=== PATIENT | female | born 1995 ===

== ENCOUNTER 2018-04-20 19:02 | Emergency (ER) | payer BC ==
[2018-04-20 21:08] LABS: BASO # 0.1 K/uL (0.0-0.2); BASO % 1.3 % (0.0-2.0); EOS # 0.1 K/uL (0.0-0.7); EOS % 1.3 % (0.0-4.0); HEMOGLOBIN 12.5 g/dL (12.0-16.0); LYMPH # 2.8 K/uL (1.0-4.3); LYMPH % 35.7 % (20.0-40.0); MEAN CELL VOLUME 87.1 fl (81.0-99.0); MEAN CORPUSCULAR HEMOGLOBIN 28.8 pg (27.0-31.0); MEAN CORPUSCULAR HGB CONC 33.1 g/dL (33.0-37.0); MEAN PLATELET VOLUME 8.7 fl (7.2-11.7); MONO # 0.5 K/uL (0.0-0.8); MONO % 6.9 % (0.0-10.0); NEUT # 4.3 K/uL (1.8-7.0); NEUT % 54.8 % (50.0-75.0); NRBC % 0.1 % (0.0-0.0); RBC 4.34 Mil/uL (3.80-5.20); RED CELL DISTRIBUTION WIDTH 13.9 % (11.5-14.5); WHITE BLOOD COUNT 7.9 K/uL (4.8-10.8)
[2018-04-20 21:22] LABS: SQUAMOUS EPITHIAL 1 /hpf (0-5); URINE BACTERIA RARE (<OCC); URINE BILIRUBIN NEGATIVE (NEGATIVE); URINE BLOOD NEGATIVE (NEGATIVE); URINE CLARITY CLEAR (Clear); URINE COLOR STRAW (YELLOW); URINE GLUCOSE (UA) NEG (NEGATIVE); URINE LEUKOCYTE ESTERASE MOD Leu/uL (Negative); URINE PROTEIN NEGATIVE (NEGATIVE); URINE UROBILINOGEN 0.2-1.0 mg/dL (0.2-1.0)
--- NOTE | 2018-04-20 21:36 | ED PDOC ---
HPI: Chest Pain Time Seen by Provider: 04/20/18 20:02 Chief Complaint (Nursing): Chest Pain Chief Complaint (Provider): Chest Pain History Per: Patient History/Exam Limitations: no limitations Onset/Duration Of Symptoms: Intermittent Episodes (x2 weeks) Current Symptoms Are (Timing): Still Present Additional Complaint(s): 22 year old female presents to ED with complaints of chest pain and palpitations associated with left arm pain intermittently for 2 weeks. Patient states symptoms are similar to episodes in the past with (-) cardiac work up months ago. Otherwise, she denies syncope, dizziness, vomiting, diarrhea, abdominal pain, or leg swelling. PCP: cannot recall. Past Medical History Reviewed: Historical Data, Nursing Documentation, Vital Signs Vital Signs: Last Vital Signs Temp 98.2 F 04/20/18 19:10 Pulse 86 04/20/18 19:10 Resp 16 04/20/18 19:10 BP 133/67 04/20/18 19:10 Pulse Ox 100 04/20/18 19:10 - Medical History PMH: No Chronic Diseases Denies: Asthma, Bronchitis, CAD, CVA, Diabetes, Deep Vein Thrombosis - Surgical History Surgical History: No Surg Hx - Family History Family History: States: No Known Family Hx Denies: ID, CAD, Diabetes - Immunization History Hx Tetanus Toxoid Vaccination: No Hx Influenza Vaccination: No Hx Pneumococcal Vaccination: No - Home Medications Home Medications: Ambulatory Orders Medication Instructions Recorded Naproxen 500 mg PO BID #30 tab 04/20/18 Nitrofurantoin Macrocrystals 100 mg PO BID #14 cap 04/20/18 [Macrobid] - Allergies Allergies/Adverse Reactions: Allergies Allergy/AdvReac Type Severity Reaction Status Date / Time No Known Allergies Allergy Verified 04/20/18 19:09 ANGELES Risk Score for UA/NSTEMI - ANGELES Risk Score Age > 64: NO 3 or more CAD Risk Factors: NO Known CAD (Stenosis greater than 50%): NO Aspirin use in past 7 days: NO Severe Angina: NO EKG ST changes greater than 0.5mm: NO Positive Cardiac Marker: NO ANGELES Score: 0 Risk %: 5% Wells Criteria for PE - Wells Criteria for Pulmonary Embolism Clinical Signs and Symptoms of DVT: No P.E is #1 Diagnosis, or Equally Likely: No Heart Rate >100: No Immobilization at least 3 days;Surgery previous 4 weeks: No Previous, objectively diagnosed PE or DVT: No Hemoptysis: No Malignancy w/treatment within 6 months, or palliative: No Total Score: 0 Review of Systems ROS Statement: Except As Marked, All Systems Reviewed And Found Negative Cardiovascular: Positive for: Chest Pain, Palpitations Gastrointestinal: Negative for: Vomiting, Abdominal Pain, Diarrhea Musculoskeletal: Positive for: Arm Pain (left-sided). Negative for: Other (leg edema) Neurological: Negative for: Dizziness, Other (syncope) Physical Exam - Reviewed Nursing Documentation Reviewed: Yes Vital Signs Reviewed: Yes - Physical Exam Appears: Positive for: Well, Non-toxic, No Acute Distress Head Exam: Positive for: ATRAUMATIC, NORMAL INSPECTION, NORMOCEPHALIC Skin: Positive for: Normal Color Eye Exam: Positive for: Normal appearance, EOMI, PERRL ENT: Positive for: Normal ENT Inspection Neck: Positive for: Normal, Supple Cardiovascular/Chest: Positive for: Regular Rate, Rhythm, Chest Non Tender Respiratory: Positive for: Normal Breath Sounds. Negative for: Wheezing, Respiratory Distress Gastrointestinal/Abdominal: Positive for: Normal Exam, Soft. Negative for: Tenderness Back: Positive for: Normal Inspection Extremity: Positive for: Normal ROM (upper/lower). Negative for: Pedal Edema, Calf Tenderness Neurologic/Psych: Positive for: Alert, Oriented. Negative for: Motor/Sensory Deficits - Laboratory Results Result Diagrams: 04/20/18 20:59 04/20/18 20:59 Lab Results: Urine Color Straw (YELLOW) 04/20/18 20:59 Urine Clarity Clear (Clear) 04/20/18 20:59 Urine pH 7.0 (5.0-8.0) 04/20/18 20:59 Ur Specific [place] 1.009 (1.003-1.030) 04/20/18 20:59 Urine Protein Negative mg/dL (NEGATIVE) 04/20/18 20:59 Urine Glucose (UA) Neg mg/dL (NEGATIVE) 04/20/18 20:59 Urine Ketones Negative mg/dL (NEGATIVE) 04/20/18 20:59 Urine Blood Negative (NEGATIVE) 04/20/18 20:59 Urine Nitrate Negative (NEGATIVE) 04/20/18 20:59 Urine Bilirubin Negative (NEGATIVE) 04/20/18 20:59 Urine Urobilinogen 0.2-1.0 mg/dL (0.2-1.0) 04/20/18 20:59 Ur Leukocyte Esterase Mod Tera/uL (Negative) 04/20/18 20:59 Urine RBC (Auto) 1 /hpf (0-3) 04/20/18 20:59 Urine Microscopic WBC 7 /hpf (0-5) H 04/20/18 20:59 Ur Squamous Epith Cells 1 /hpf (0-5) 04/20/18 20:59 Urine Bacteria Rare (<OCC) 04/20/18 20:59 - ECG ECG: Positive for: Interpreted By Me ECG Rhythm: Positive for: Normal QRS. Negative for: ST/T Changes Interpretation Of Abn EKG: sinus arrhythmia O2 Sat by Pulse Oximetry: 100 Medical Decision Making Medical Decision Making: Initial Impression: chest pain, palpitation, left arm pain Differential diagnosis: cardiac arrhythmia, ACS, PE Initial Plan: * EKG * Labs * CXR * Urine C&S Scribe Attestation: Documented by Brenda Perry, acting as a scribe for Boni Salinas MD. Provider Scribe Attestation: All medical record entries made by the Scribe were at my direction and personally dictated by me. I have reviewed the chart and agree that the record accurately reflects my personal performance of the history, physical exam, medical decision making, and the department course for this patient. I have also personally directed, reviewed, and agree with the discharge instructions and disposition. Disposition - Clinical Impression Clinical Impression: Chest pain, UTI (urinary tract infection) - Patient ED Disposition Is Patient to be Admitted: No Doctor Will See Patient In The: Office Counseled Patient/Family Regarding: Studies Performed, Diagnosis, Need For Followup - Disposition Referrals: [facility] [Outside] Disposition: Routine/Home Disposition Time: 22:45 Condition: GOOD Additional Instructions: MAIKOL STEVENS, thank you for letting us take care of you today. Your provider was Boni Salinas MD and you were treated for CHEST PAIN. The emergency medical care you received today was directed at your acute symptoms. If you were prescribed any medication, please fill it and take as directed. It may take several days for your symptoms to resolve. Return to the Emergency Department if your symptoms worsen, do not improve, or if you have any other problems. Please contact your doctor or call one of the physicians/clinics you have been referred to that are listed on the Patient Visit Information form that is included in your discharge packet. Bring any paperwork you were given at discharge with you along with any medications you are taking to your follow up visit. Our treatment cannot replace ongoing medical care by a primary care provider outside of the emergency department. Thank you for allowing the [facility] team to be part of your care today. If you had an X-Ray or CT scan: A Radiologist will review the ED reading if any change in treatment is needed we will contact you. If you had a blood, urine, or wound culture: It will take several days for the results, if any change in treatment is needed we will contact you. If you had an STI test: It will take 48 hours for the results. Please call after 1 week if you have not heard back. Prescriptions: Naproxen 500 mg PO BID #30 tab Nitrofurantoin Macrocrystals [Macrobid] 100 mg PO BID #14 cap Instructions: Chest Pain (DC), Urinary Tract Infections in Adults
[2018-04-20 21:57] LABS: BLOOD UREA NITROGEN 14 mg/dl (7-17); CALCIUM 9.2 mg/dL (8.4-10.2); GFR NON-AFRICAN AMERICAN > 60
[2018-04-20 23:03] VITALS: BP 101/58; PULSE 65; RESP 18; TEMP 98.7; O2SAT 99
--- NOTE | 2018-04-21 09:14 | RAD ---
Date of service: 04/20/2018 HISTORY: chest pain COMPARISON: No prior. FINDINGS: LUNGS: No active pulmonary disease. PLEURA: No significant pleural effusion identified, no pneumothorax apparent. CARDIOVASCULAR: No aortic atherosclerotic calcification present. Normal cardiac size. No pulmonary vascular congestion. OSSEOUS STRUCTURES: No significant abnormalities. VISUALIZED UPPER ABDOMEN: Normal. OTHER FINDINGS: None. IMPRESSION: No active disease.
--- NOTE | 2018-04-21 15:28 | CARD ---
APPROVED REPORT Date of service: 04/20/2018 EKG Measurement Heart [id number] <Conclusion> Normal sinus rhythm with sinus arrhythmia Normal ECG
== END 2018-04-20 23:08 | disposition home or self-care (01) ==
LOC: H.ER 19:02
DX: R07.89 Other chest pain (principal); N39.0 Urinary tract infection, site not specified